=== PATIENT | male | born 1945 | race Caucasian/White ===

== ENCOUNTER 2017-11-04 21:53 | Emergency (ER) | payer MEDICARE ==
[~2017-11-04] VITALS: Ht 172.7 cm; Wt 75.0 kg
[~2017-11-04 21:53] MED LIST: APIX5TAB PO; ASPI-650 PO; AZIT500T5 PO; LISI5TAB7 PO; LOVA10TA PO; METO50TA82 PO
[2017-11-04] MEDS ORDERED: SODIUM CHLORIDE FLUSH 10ML SYR IVF ONE (22:30)
[2017-11-04] MEDS ORDERED: AMLO-262 PO (22:30)
[2017-11-04] MEDS ORDERED: HYDR25TA6 PO (22:31)
[2017-11-04] MEDS ORDERED: MULT-717 PO (22:32)
[2017-11-04] MEDS ORDERED: BISM262T9 PO (22:32)
[2017-11-04] MEDS ORDERED: ASCO100T5 PO (22:32)
[2017-11-04 22:50] LABS: BASOPHILS # (AUTO) 0.01 x10^3/uL (0-0.1); BASOPHILS % (AUTO) 0 % (0-1); EOSINOPHILS # (AUTO) 0.09 x10^3/uL (0-0.4); EOSINOPHILS % (AUTO) 2 % (1-7); LYMPHOCYTES # (AUTO) 1.84 x10^3/uL (1-3.4); LYMPHOCYTES % (AUTO) 36 % (22-44); MD NO; MEAN CORPUSCULAR HEMOGLOBIN 31.7 pg (27.5-34.5); MEAN CORPUSCULAR HGB CONC 34.4 g/dL (33.2-36.2); MEAN CORPUSCULAR VOLUME 92.1 fL (81-97); MEAN PLATELET VOLUME 9.4 fL (7.4-10.4); MONOCYTES # (AUTO) 0.53 x10^3/uL (0.2-0.8); MONOCYTES % (AUTO) 10 % (2-9); NEUTROPHILS # (AUTO) 2.72 x10^3/uL (1.8-6.8); NEUTROPHILS % (AUTO) 53 % (42-75); PLATELET COUNT 172 x10^3/uL (130-400); RED BLOOD COUNT 5.32 x10^6/uL (4.38-5.82); RED CELL DISTRIBUTION WIDTH 13.9 % (9.4-14.8)
[2017-11-04 22:59] LABS: INTERNATIONAL NORMALIZED RATIO 0.96 (0.93-1.1)
[2017-11-04 23:03] LABS: ALANINE AMINOTRANSFERASE 58 U/L (12-78); ALBUMIN 3.6 g/dL (3.4-5.0); ANION GAP 9 mmol/L (5-15); CALCIUM 8.5 mg/dL (8.5-10.1); CHLORIDE 107 mmol/L (98-107); CREATININE 1.05 mg/dL (0.7-1.3)
[2017-11-04 23:07] LABS: ALKALINE PHOSPHATASE 56 U/L (45-117); BILIRUBIN,TOTAL 0.5 mg/dL (0.2-1.0); TOTAL PROTEIN 7.9 g/dL (6.4-8.2); TROPONIN I < 0.015 ng/mL (0.000-0.045)
[2017-11-05] MEDS ORDERED: ONDANSETRON 2MG/ML, 2ML IVPush PRN ×2 (00:30→02:30)
[2017-11-05] MEDS ORDERED: SODIUM CHLORIDE 0.9% 1,000 ML IV SCH (02:23)
[2017-11-05] MEDS ORDERED: ENALAPRILAT 1.25 MG/ML, 2ML IVPush PRN (02:30)
[2017-11-05] MEDS ORDERED: HEPARIN 5,000 UNITS/ML, 1ML SQ SCH (02:30)
[2017-11-05] MEDS ORDERED: POLYETHYLENE GLYCOL 17 GM PACKET PO PRN (02:30)
[2017-11-05] MEDS ORDERED: ACETAMINOPHEN 325 MG TABLET PO PRN (02:30)
[2017-11-05] MEDS ORDERED: hydrALAzine 20 MG/ML, 1ML IVPush PRN (02:30)
[2017-11-05] MEDS ORDERED: BISACODYL 10 MG SUPP PR PRN (02:30)
[2017-11-05] MEDS ORDERED: DOCUSATE 100 MG CAPSULE PO PRN (02:30)
[2017-11-05] MEDS ORDERED: HEPARIN 5,000 UNITS/ML, 1ML ONE (03:02)
[2017-11-05 03:21] LABS: FREE T4 (FREE THYROXINE) 1.25 ng/dL (0.76-1.46); THYROID STIMULATING HORMONE 4.67 mIU/L (0.358-3.740)
[2017-11-05 07:01] LABS: MICROSCOPIC AUTO
[2017-11-05 07:06] LABS: CULTURE INDICATED? NO
[2017-11-05 07:55] LABS: TROPONIN I < 0.015 ng/mL (0.000-0.045)
[2017-11-05] MEDS: BISMUTH SUBSALICYLATE 175 MG/5 ML MAX/STR PO SCH ×2 (08:00→08:06)
[2017-11-05 09:00] VITALS: BP 121/73
[2017-11-05] MEDS ORDERED: MULTIVITAMINS/MINERALS TABLET PO SCH (09:00)
[2017-11-05] MEDS ORDERED: [UNRECOGNIZED DRUG - OTHER] PO SCH (09:00)
[2017-11-05] MEDS ORDERED: METOPROLOL TARTRATE 50 MG TABLET PO SCH (09:00)
[2017-11-05] MEDS ORDERED: ASCORBIC ACID 500 MG TABLET PO SCH (09:00)
[2017-11-05] MEDS ORDERED: ATORVASTATIN 20 MG TABLET PO SCH ×2 (09:00→21:00)
[2017-11-05] MEDS ORDERED: ASPIRIN 81 MG TABLET EC PO SCH (09:00)
[2017-11-05] MEDS ORDERED: AMLODIPINE 5 MG TABLET PO SCH (09:00)
[2017-11-05] MEDS ORDERED: AMLODIPINE PO SCH (09:00)
[2017-11-05] MEDS ORDERED: APIXABAN 5 MG TABLET PO SCH (09:00)
[2017-11-05] MEDS ORDERED: ATORVASTATIN PO SCH (09:00)
[2017-11-05] MEDS ORDERED: METO-95 PO (10:56)
[2017-11-05] MEDS ORDERED: AMLO1CAP10 PO (10:56)
== END 2017-11-05 11:51 | disposition home or self-care (01) ==
LOC: ED 23:59 → EDIP 11-05 00:07 → UNDOADMIN 11-05 00:07 → ED 11-05 11:51
DX: I48.2 Chronic atrial fibrillation (principal); I48.0 Paroxysmal atrial fibrillation; E78.5 Hyperlipidemia, unspecified; I10 Essential (primary) hypertension; I25.2 Old myocardial infarction; I25.810 Atherosclerosis of coronary artery bypass graft(s) without angina pectoris; Z95.1 Presence of aortocoronary bypass graft; R79.89 Other specified abnormal findings of blood chemistry
CPT/HCPCS: 36415; 71045; 80053; 81001; 83036; 83735; 84439; 84443; 84484; 85025; 85610; 85730; 93005; 96360; 96361; 96372; 99285; J1644; J7030

== ENCOUNTER 2020-09-25 12:12 | Emergency (ER) | payer MEDICARE ==
[~2020-09-25 12:12] MED LIST changes: +AMLO-262 PO; +AMLO1CAP11 PO; +ASCO100T5 PO; +AZIT500T10 PO; -AZIT500T5 PO; +BISM262T9 PO; +CEFD300C37 PO; +HYDR25TA6 PO; +LACT1TAB13 PO; +METO-95 PO; +MULT-717 PO
[2020-09-25 13:11] LABS: BASOPHILS % (AUTO) 0 % (0-1); EOSINOPHILS % (AUTO) 0 % (1-7); LYMPHOCYTES % (AUTO) 7 % (22-44); MEAN CORPUSCULAR HEMOGLOBIN 31.7 pg (27.5-34.5); MEAN CORPUSCULAR HGB CONC 34.1 g/dL (33.2-36.2); MONOCYTES % (AUTO) 7 % (2-9); NEUTROPHILS % (AUTO) 86 % (42-75); PLATELET COUNT 255 x10^3/uL (130-400); RED BLOOD COUNT 5.22 x10^6/uL (4.38-5.82); RED CELL DISTRIBUTION WIDTH 13.3 % (9.4-14.8)
[2020-09-25 13:14] LABS: ALANINE AMINOTRANSFERASE 48 U/L (12-78); ALBUMIN 3.4 g/dL (3.4-5.0); ANION GAP 9 mmol/L (5-15); CHLORIDE 101 mmol/L (98-107)
[2020-09-25 13:17] LABS: ALKALINE PHOSPHATASE 60 U/L (45-117); BILIRUBIN,TOTAL 0.7 mg/dL (0.2-1.0); CREATININE 1.39 mg/dL (0.7-1.3); TOTAL PROTEIN 8.3 g/dL (6.4-8.2)
[2020-09-25 13:58] LABS: MD SCAN
[2020-09-25] MEDS ORDERED: ONDANSETRON 2MG/ML, 2ML IVPush ONE (15:30)
[2020-09-25] MEDS ORDERED: SODIUM CHLORIDE FLUSH 10ML SYR IVF ONE (15:30)
--- NOTE | 2020-09-25 15:47 | NUR ---
PT TO ROOM AT 1515.
[2020-09-25] MEDS ORDERED: ONDANSETRON 2MG/ML, 2ML ONE (15:55)
[2020-09-25] MEDS ORDERED: HYDROmorphone 1 MG/ML, 1ML INJ ONE ×2 (15:55→17:51)
[2020-09-25] MEDS: HYDROmorphone 2 MG/ML, 1ML IVPush PRN ×2 (15:59→17:53)
[2020-09-25] MEDS ORDERED: HYDR25TA6 PO (16:10)
[2020-09-25] MEDS ORDERED: ALPR0.25 PO (16:10)
--- NOTE | 2020-09-25 16:12 | NUR ---
Pt to imaging.
[2020-09-25] MEDS ORDERED: OMNIPAQUE 350 MG/ML, 100ML BOTTLE ONE (16:23)
--- NOTE | 2020-09-25 16:51 | NUR ---
PT BLADDER SCANNED AFTER UA SAMPLE GIVEN. GREATER THAN 500MLS ON BLADDER SCANNER. ERP MADE AWARE.
[2020-09-25 17:13] LABS: MICROSCOPIC NOT IND
[2020-09-25] MEDS ORDERED: CIPROFLOXACIN 500 MG TABLET PO ONE (17:30)
[2020-09-25] MEDS ORDERED: METRONIDAZOLE PMX 500MG/100ML 100 ML IV ONE (17:30)
[2020-09-25] MEDS ORDERED: CIPROFLOXACIN 500 MG TABLET ONE (17:47)
[2020-09-25] MEDS ORDERED: METRONIDAZOLE PMX 500MG/100ML 100 ML ONE (17:47)
[2020-09-25 19:07] VITALS: BP 116/61
--- NOTE | 2020-09-28 11:38 | NUR ---
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 LOMBARDO WHO RECOMMENDED PT RETURN TO ER FOR EVALUATION. PT TO RETURN TODAY DISCUSSED OVER PHONE FOR RE-EVAL.
== END 2020-09-25 19:25 | disposition home or self-care (01) ==
LOC: ED 14:00
DX: K57.32 Diverticulitis of large intestine without perforation or abscess without bleeding (principal); I48.91 Unspecified atrial fibrillation; I25.2 Old myocardial infarction; I10 Essential (primary) hypertension; E78.5 Hyperlipidemia, unspecified; I25.10 Atherosclerotic heart disease of native coronary artery without angina pectoris; I48.92 Unspecified atrial flutter; Z87.891 Personal history of nicotine dependence
CPT/HCPCS: 36415; 74021; 74177; 80053; 81003; 85025; 96365; 96375; 96376; 99285; J1170; J2405; Q9967

== ENCOUNTER 2020-09-28 12:19 | Emergency (ER) | payer MEDICARE ==
[~2020-09-28] VITALS: Ht 172.7 cm; Wt 69.6 kg
[~2020-09-28 12:19] MED LIST changes: +ALPR0.25 PO
[2020-09-28 13:19] LABS: BASOPHILS % (AUTO) 1 % (0-1); EOSINOPHILS % (AUTO) 3 % (1-7); LYMPHOCYTES % (AUTO) 16 % (22-44); MEAN PLATELET VOLUME 8.1 fL (7.4-10.4); MONOCYTES % (AUTO) 11 % (2-9); NEUTROPHILS % (AUTO) 69 % (42-75); PLATELET COUNT 235 x10^3/uL (130-400); RED BLOOD COUNT 4.98 x10^6/uL (4.38-5.82)
[2020-09-28 13:21] LABS: MD NO
[2020-09-28 13:29] LABS: CHLORIDE 103 mmol/L (98-107)
[2020-09-28] MEDS ORDERED: ONDANSETRON ODT 4 MG PO ONE (13:30)
[2020-09-28] MEDS ORDERED: AMOXICILLIN/CLAV 875-125MG TABLET PO ONE (13:30)
[2020-09-28 13:37] LABS: ALANINE AMINOTRANSFERASE 68 U/L (12-78); ALBUMIN 3.6 g/dL (3.4-5.0); ALKALINE PHOSPHATASE 56 U/L (45-117); ANION GAP 9 mmol/L (5-15); BILIRUBIN,TOTAL 0.6 mg/dL (0.2-1.0); CALCIUM 9.3 mg/dL (8.5-10.1); TOTAL PROTEIN 8.2 g/dL (6.4-8.2)
[2020-09-28] MEDS ORDERED: ONDANSETRON ODT 4 MG ONE (13:49)
[2020-09-28] MEDS ORDERED: AMOXICILLIN/CLAV 875-125MG TABLET ONE (13:49)
[2020-09-28] MEDS ORDERED: metroNIDAZOLE 500 MG TABLET PO ONE (14:00)
[2020-09-28] MEDS ORDERED: metroNIDAZOLE 500 MG TABLET ONE (14:28)
[2020-09-28 14:39] VITALS: BP 129/72
--- NOTE | 2020-09-28 14:51 | NUR ---
VSS. Ambulatory. Pt verbalized understanding of discharge paperwork.
== END 2020-09-28 15:09 | disposition home or self-care (01) ==
LOC: ED 14:42
DX: K57.32 Diverticulitis of large intestine without perforation or abscess without bleeding (principal); R11.2 Nausea with vomiting, unspecified; Z79.899 Other long term (current) drug therapy
CPT/HCPCS: 36415; 80053; 83690; 85025; 99284; Q0162